=== PATIENT | female | born 1950 | race Two or more races ===

== ENCOUNTER 2017-03-03 12:00 | Emergency (ER) | payer SELFPAY ==
[~2017-03-03] VITALS: Ht 149.9 cm; Wt 63.5 kg
[2017-03-03 12:32] VITALS: BP 150/67
== END 2017-03-03 12:55 | disposition left against medical advice (07) ==
LOC: ER 12:00
DX: R06.02 Shortness of breath (principal); Z53.21 Procedure and treatment not carried out due to patient leaving prior to being seen by health care provider
CPT/HCPCS: 82962